=== PATIENT | male | born 1980 | race Caucasian/White ===

== ENCOUNTER 2021-04-29 01:45 | Emergency (ER) | payer OTHER ==
[~2021-04-29] VITALS: Ht 157.5 cm; Wt 89.4 kg
[2021-04-29 02:10] VITALS: BP 185/128
--- NOTE | 2021-04-29 02:30 | NUR ---
PT TAKEN TO BED 07. AMBULATED W STEADY GAIT.
[2021-04-29] MEDS ORDERED: ACETAMINOPHEN 325 MG TAB PO ONE (02:40)
--- NOTE | 2021-04-29 02:49 | NUR ---
PT AMBULATED TO CT WITH TECH
--- NOTE | 2021-04-29 02:50 | NUR ---
PT C/O OF FALL OFF LADDER YESTERDAY MORNING AT 10 AM WHILE PT WAS WORKING ON LADDER, LADDER FELL BENEATH HIM AND HE FELL AND HIT HIS HEAD ON THE FLOOR ON HIS LEFT SIDE AND LUMBAR FELL ON HIS RT SIDE OF HEAD. PT C/O OF DIZZINESS BUT IS AXO X4 AND DENIES VOMITTING AND NAUSEA. MEDICAL HX: HTN, SYNCOPE ALLERGIES: NONE NKA
[2021-04-29 04:31] VITALS: BP 156/96
--- NOTE | 2021-04-29 04:32 | NUR ---
Chart checked and completed. The patient's care was reviewed and supervised by Charissa Santiago RN.
== END 2021-04-29 04:31 | disposition home or self-care (01) ==
LOC: MED 01:45
DX: S09.90XA Unspecified injury of head, initial encounter (principal); R55 Syncope and collapse; W19.XXXA Unspecified fall, initial encounter; Y93.89 Activity, other specified; Y92.89 Other specified places as the place of occurrence of the external cause; Y99.0 Civilian activity done for income or pay
CPT/HCPCS: 70450; 72125; 99285